=== PATIENT | female | born 1980 | race Caucasian/White ===

== ENCOUNTER 2019-11-29 04:43 | Emergency (ER) | payer SELFPAY ==
[~2019-11-29] VITALS: Ht 177.8 cm; Wt 81.8 kg
[2019-11-29] MEDS ORDERED: XANA0.5T PO (05:25)
[2019-11-29 05:32] LABS: HEMATOCRIT 39.2 % (36.0-47.0); HEMOGLOBIN 13.3 g/dl (12.0-15.5); MEAN CORPUSCULAR HEMOGLOBIN 30.1 pg (27.0-33.0); MEAN CORPUSCULAR HGB CONC 33.9 g/dl (32.0-36.5); MEAN CORPUSCULAR VOLUME 88.7 fl (80.0-96.0); PLATELET COUNT, AUTOMATED 263 10^3/uL (150-450); RED BLOOD COUNT 4.42 10^6/uL (4.00-5.40); WHITE BLOOD COUNT 7.3 10^3/uL (4.0-10.0)
[2019-11-29 05:52] LABS: HCG, SERUM QUALITATIVE NEGATIVE (NEGATIVE)
[2019-11-29 06:04] LABS: AMPHETAMINES LEVEL URINE NEGATIVE (NEGATIVE); BARBITURATES URINE NEGATIVE (NEGATIVE); BENZODIAZEPINES URINE NEGATIVE (NEGATIVE); CANNABINOIDS URINE NEGATIVE (NEGATIVE); COCAINE METABOLITE URINE POSITIVE (NEGATIVE); METHADONE URINE NEGATIVE (NEGATIVE); OPIATES URINE NEGATIVE (NEGATIVE); PHENCYCLIDINE URINE NEGATIVE (NEGATIVE)
[2019-11-29 06:05] LABS: ACETAMINOPHEN LEVEL < 2.0 UG/ML (10.0-30.0); ALBUMIN 3.7 GM/DL (3.2-5.2); ALT/SGPT 21 U/L (12-78); BILIRUBIN,DIRECT < 0.1 MG/DL (0.0-0.2); BILIRUBIN,TOTAL 0.3 MG/DL (0.2-1.0); BLOOD UREA NITROGEN 7 MG/DL (7-18); CALCIUM LEVEL 8.3 MG/DL (8.5-10.1); CARBON DIOXIDE LEVEL 25 MEQ/L (21-32); CHLORIDE LEVEL 113 MEQ/L (98-107); CREATININE FOR GFR 0.68 MG/DL (0.55-1.30); ETHYL ALCOHOL (ETHANOL) 0.143 % (0.000-0.010); GLOMERULAR FILTRATION RATE > 60.0 (>58); GLUCOSE, FASTING 97 MG/DL (70-100); POTASSIUM SERUM 3.9 MEQ/L (3.5-5.1); SALICYLATE LEVEL < 1.7 MG/DL (5.0-30.0); SODIUM LEVEL 146 MEQ/L (136-145); TOTAL PROTEIN 7.3 GM/DL (6.4-8.2)
[2019-11-29 14:21] VITALS: BP 166/87
== END 2019-11-29 14:22 | disposition home or self-care (01) ==
LOC: M ED 04:43
DX: F43.0 Acute stress reaction (principal); T74.11XA Adult physical abuse, confirmed, initial encounter; Y92.9 Unspecified place or not applicable; Y93.9 Activity, unspecified; F17.290 Nicotine dependence, other tobacco product, uncomplicated; F19.10 Other psychoactive substance abuse, uncomplicated
CPT/HCPCS: 80048; 80076; 80307; 84443; 84703; 85027; 99284; G0480